=== PATIENT | female | born 1955 | race Caucasian/White ===

== ENCOUNTER 2019-05-20 11:23 | Inpatient (IN) | payer MEDICARE, OTHER ==
[~2019-05-20] VITALS: Ht 180.3 cm; Wt 74.8 kg
--- NOTE | 2019-05-20 11:30 | NUR ---
NURSING ADMISSION NOTE: PT WAS ADMITTED TODAY FROM [facility] AT 1130 VIA AMBULANCE. PT ARRIVED ON THE UNIT VIA GURNEY ACCOMPANIED BY 2 FUSE CUP EXPANDER. PT IS A&OX3-4, ANXIOUS, IRRITABLE, AGITATED, FLAT AFFECT, DEPRESSED MOOD, UNCOOPERATIVE, DENIES SI/HI/AVH AT THIS TIME BUT STATING "IM VERY DEPRESSED I JUST HAD MY CANCER COME BACK AGAIN, THAT'S WHY IM HERE, I DON'T WANT TO TALK ABOUT ANY MEDICAL PROBLEMS". PT IS ABLE TO CONTRACT FOR SAFETY WHILE IN THE HOSPITAL. PT WAS UNCOOPERATIVE WITH THE ADMISSION PROCESS AND REFUSED TO SIGN THE PAPERWORK. PT ALSO REFUSED PICTURES TO BE TAKEN BUT ALLOWED BODY CHECK TO BE DONE. PT HAD RECENT ABDOMINAL SURGERY ABOUT 8 DAYS AGO DUE TO HAVING OVARIAN CANCER AND HAS STERI STRIPS APPLIED TO THE WOUND BUT NO DRESSING OPEN TO AIR FROM THE PUBIC AREA UP TO THE UMBILICUS, BRUISE TO RIGHT INNER SIDE OF ELBOW, RIGHT WRIST AND RIGHT HAND/THUMB. WOULD CONSULT HAS BEEN ORDERED. ADMISSION ORDERS WERE GIVEN BY DR. GAGNON AND DR. ECHAVARRIA. PT IS CURRENTLY ON 5150 GD, PER HOLD, "PT IS ERRATIC AND UNPREDICTABLE. HAS THREATENED . HAS HISTORY OF MANIC EPISODES. A RESULT SHE IS UNABLE TO MEET HER BASIC NEEDS AND CANNOT SAFELY CARE FOR HER IN PRESENT CONDITION." VS:151/92, 74, 19, 97%RA, 98.0, 0/10 PAIN. WILL CONTINUE TO MONITOR Q15 MINS FOR SAFETY AND BEHAVIOR.
[2019-05-20] MEDS ORDERED: ATEN25TA PO (11:55)
[2019-05-20] MEDS ORDERED: ENOX40DI SQ (11:55)
[2019-05-20] MEDS ORDERED: TRAZ-214 PO (11:55)
[2019-05-20] MEDS ORDERED: DOCU-141 PO (11:55)
[2019-05-20] MEDS ORDERED: HYDR-3972 PO (11:55)
[2019-05-20] MEDS ORDERED: MAG HYDROX/AL HYDROX/SIMETH 30 ML UDC PO PRN (13:30)
[2019-05-20] MEDS ORDERED: MAGNESIUM HYDROXIDE 30 ML UDC PO PRN (13:30)
[2019-05-20] MEDS ORDERED: ACETAMINOPHEN 325 MG TABLET PO PRN (13:30)
--- NOTE | 2019-05-20 14:57 | NUR ---
Group Note: Pt did not attend group therapy session on 05/20/19 at 2pm discussing grief and loss. Pt stated that she was too new and needs time to adjust to the environment.
[2019-05-20 16:00] VITALS: BP 100/65
[2019-05-20] MEDS: DIVALPROEX SODIUM 125 MG CAP.SPRINK PO SCH (16:25)
[2019-05-20] MEDS: ARIPIPRAZOLE 5 MG TABLET PO SCH (16:25)
[2019-05-20] MEDS: HYDROCODONE/APAP 5/325MG 1 EACH TABLET PO PRN (19:34)
[2019-05-20 20:09] VITALS: BP 107/73
[2019-05-20] MEDS: TEMAZEPAM 7.5 MG CAPSULE PO PRN (21:57)
[2019-05-20] MEDS ORDERED: LORAZEPAM 0.5 MG TABLET ONE (23:14)
[2019-05-20] MEDS: LORAZEPAM 0.5 MG TABLET PO PRN (23:25)
[2019-05-21 06:41] LABS: ALBUMIN 3.3 g/dL (3.4-5.0); BILIRUBIN,TOTAL 0.3 mg/dL (0.2-1.0); CALCIUM, SERUM 8.7 mg/dL (8.5-10.1); POTASSIUM 4.5 mmol/L (3.5-5.1); TOTAL PROTEIN, SERUM 6.5 g/dL (6.4-8.2)
[2019-05-21 06:52] LABS: CHOLESTEROL 156 mg/dL (<200); HDL CHOLESTEROL 34 mg/dL (40-60); LDL 99 mg/dL (0-99); TRIGLYCERIDES 110 mg/dL (30-150)
[2019-05-21 08:00] VITALS: BP 100/64
[2019-05-21] MEDS: DOCUSATE SODIUM 100 MG CAPSULE PO SCH ×2 (08:47→16:16)
[2019-05-21] MEDS: ARIPIPRAZOLE 5 MG TABLET PO SCH (08:47)
[2019-05-21] MEDS: DIVALPROEX SODIUM 125 MG CAP.SPRINK PO SCH ×3 (08:47→16:16)
[2019-05-21] MEDS: ATENOLOL 25 MG TABLET PO SCH (08:50)
--- NOTE | 2019-05-21 11:31 | NUR ---
WOUND CARE CONSULT: PT PRESENTS AMBULATORY AND CONTINENT WITH CLOSED ABDOMINAL INCISION WITH SUTURES AND STERI STRIPS, NO DRAINAGE, NO TENDERNESS, NO REDNESS NOTED. DEFER TO MD. RECOMMEND FOLLOW UP WITH HER SURGEON. WILL SEE PRN. PT IS A NURSE.
[2019-05-21 16:09] VITALS: BP 139/73
--- NOTE | 2019-05-21 16:15 | NUR ---
SW called the pts , Jonathan ([phone]), and inquired about the pts follow up doctors appointment. He stated that there is an appointment for June 05 but the pt also scheduled one for the following day. He was unable to inform the SW about the necessity level of the appointment. SW stated that she would attempt to speak to the doctor herself.
[2019-05-21] MEDS: HYDROCODONE/APAP 5/325MG 1 EACH TABLET PO PRN (18:30)
--- NOTE | 2019-05-21 18:36 | NUR ---
GPS/RN-NOTES PATIENT REQUESTING NORCO FOR 6/10 ABDOMINAL PAIN. NORCO 5/325MG 1 TAB. P.O GIVEN PRN ORDER. WILL CONT. MONITORING FOR SAFETY.
[2019-05-21 20:33] VITALS: BP 110/71
[2019-05-21] MEDS: TEMAZEPAM 7.5 MG CAPSULE PO PRN (21:41)
[2019-05-21] MEDS: ENOXAPARIN SODIUM 40 MG/0.4 ML DISP.SYRIN SQ SCH (21:49)
[2019-05-22] MEDS: TEMAZEPAM 7.5 MG CAPSULE PO PRN ×2 (01:56→23:15)
[2019-05-22] MEDS: HYDROCODONE/APAP 5/325MG 1 EACH TABLET PO PRN ×2 (03:00→20:17)
[2019-05-22 08:00] VITALS: BP 115/78
[2019-05-22] MEDS: DIVALPROEX SODIUM 125 MG CAP.SPRINK PO SCH ×3 (08:37→16:44)
[2019-05-22] MEDS: DOCUSATE SODIUM 100 MG CAPSULE PO SCH ×2 (08:37→16:43)
[2019-05-22] MEDS: ARIPIPRAZOLE 5 MG TABLET PO SCH (08:38)
--- NOTE | 2019-05-22 09:16 | NUR ---
SW called the pts doctors office, Dr. Jonathan Jimenez ([phone]), and spoke to Ce who stated that the pt called the doctors office around 3pm on the first day of her hold. PATTY stated that was within 4 hours of her being in the hospital. PATTY asked Ce to speak to the doctor about the importance of this appointment and she returned and stated that Dr. Jimenez believes she should remain on her hold and make it to the appointment in May when it was originally scheduled.
--- NOTE | 2019-05-22 09:20 | NUR ---
PATTY called the pts , Jonathan ([phone]), and informed him that the pt will remain on her hold and that the appointment was rescheduled for June 03 at 12:40PM.
[2019-05-22] MEDS: ATENOLOL 25 MG TABLET PO SCH (10:02)
--- NOTE | 2019-05-22 12:53 | NUR ---
Initial Discharge Planning: Pt currently resides at her home with her located at [address] [place] [address]; ([phone]). Per pt, she would like to return to her home. SW will work with the pt and the MD regarding appropriate discharge planning. SW will form a safe and proper discharge planning.
[2019-05-22 16:00] VITALS: BP 147/84
[2019-05-22 20:00] VITALS: BP 117/71
[2019-05-22] MEDS: ENOXAPARIN SODIUM 40 MG/0.4 ML DISP.SYRIN SQ SCH (20:31)
--- NOTE | 2019-05-22 20:54 | NUR ---
PATIENT THINKS SHE HAS URINARY INFECTION DUE TO PRESSURE ON HER BLADDER, ASKING TO HAVE HER URINE CHECK. WILL COLLECT URINE IN THE MORNING PER HER REQUEST.
[2019-05-22] MEDS: LORAZEPAM 0.5 MG TABLET PO PRN (23:48)
[2019-05-23] MEDS ORDERED: ONDA4TAB5 PO (00:37)
--- NOTE | 2019-05-23 00:38 | NUR ---
GPS/RN-PATIENT COMPLAINED OF NAUSEA.CALLED , INFORMED OF NANETTE HE ORDERED ZOFRAN 4MG.PO Q6HRS.PRN.
[2019-05-23] MEDS: ONDANSETRON 4 MG TAB.RAPDIS SL PRN ×2 (03:03→17:20)
--- NOTE | 2019-05-23 03:10 | NUR ---
c/o nausea, no vomiting noted, zofran 4 mg sl administered.
[2019-05-23] MEDS: HYDROCODONE/APAP 5/325MG 1 EACH TABLET PO PRN ×2 (04:23→13:27)
[2019-05-23 08:00] VITALS: BP 118/74
[2019-05-23] MEDS: ARIPIPRAZOLE 5 MG TABLET PO SCH (09:02)
[2019-05-23] MEDS: DOCUSATE SODIUM 100 MG CAPSULE PO SCH ×2 (09:02→16:38)
[2019-05-23] MEDS: DIVALPROEX SODIUM 125 MG CAP.SPRINK PO SCH ×2 (09:02→16:38)
[2019-05-23] MEDS: ATENOLOL 25 MG TABLET PO SCH (09:02)
--- NOTE | 2019-05-23 10:37 | NUR ---
GROUP NOTE: Pt attended group on 05/22/19 at 1400 discussing the topic of discharge planning. S: "I'm upset about not being able to discharge today. I want to go to my doctors appointment that I scheduled today at 2:00pm so that I can get my pathology report and start my chemo. I don't want to kill myself I want to live I have so much to live for, come on why would I get chemo if I wanted to kill myself. This was all a misunderstanding. I don't need to be here I am fine!" O: Pt was crying and and appeared anxious. A: Pt minimized reason for psychiatric admission. Pt stated she acted the way she did because she was just desperate and had been suffering due to her cancer diagnosis. P: Pt will continue milieu treatment and continue medication stabilization.
--- NOTE | 2019-05-23 14:32 | NUR ---
Group Note: Pt attended group therapy session on 05/23/19 at 1:30pm discussing support systems but was not engaged and did not participate.
--- NOTE | 2019-05-23 15:20 | NUR ---
PATTY called the pts , Jonathan ([phone]), and informed him that the pt is being discharged tomorrow at 11am. He stated that he would come pick her up.
[2019-05-23 16:00] VITALS: BP 100/59
[2019-05-23 20:24] VITALS: BP 102/69
[2019-05-23] MEDS ORDERED: TRAZODONE 50 MG TABLET PO SCH (22:00)
[2019-05-23] MEDS: ENOXAPARIN SODIUM 40 MG/0.4 ML DISP.SYRIN SQ SCH (22:37)
[2019-05-23] MEDS: TEMAZEPAM 7.5 MG CAPSULE PO PRN (22:38)
[2019-05-24] MEDS: LORAZEPAM 0.5 MG TABLET PO PRN (03:48)
[2019-05-24 08:00] VITALS: BP 112/65
[2019-05-24 08:16] VITALS: BP 112/65
[2019-05-24] MEDS: ATENOLOL 25 MG TABLET PO SCH (08:16)
[2019-05-24] MEDS: ARIPIPRAZOLE 5 MG TABLET PO SCH (08:16)
[2019-05-24] MEDS: DOCUSATE SODIUM 100 MG CAPSULE PO SCH (08:16)
[2019-05-24] MEDS: DIVALPROEX SODIUM 125 MG CAP.SPRINK PO SCH (08:17)
--- NOTE | 2019-05-24 09:14 | NUR ---
GAVE AN ORDER TO D/C HOLD AND D/C HOME AND TO FOLLOW UP WITH PSYCH AND MEDICAL DOCTORS.
--- NOTE | 2019-05-24 10:52 | NUR ---
REBAR FABRICATOR NOTE: PATIENT IS A 63B YEAR OLD FEMALE DISCHARGED HOME TO [id number] [place] [address] [address] [facility] [id number] . PATIENT IS COMPLIANT WITH MEDICATION MANAGEMENT, COOPERATIVE WITH PLAN OF CARE. VSS. NO ACUTE DISTRESS NOTED. NO COMPLAINTS. WOUND PICTURES TAKEN AND DOCUMENTED IN CHART. PATIENT DENIES SI/ HI AT THE TIME OF DISCHARGE. PATIENT'S BEHAVIOR HAS IMPROVED. PSYCHIATRIC DISCHARGE PLANS MET. MEDICAL TREATMENT PLANS DEFERRED FOR CONTINUAL MONITORING. RETURNED PERSONAL BELONGINGS TO PATIENT. EXIT CARE REVIEWED WITH PATIENT AND AMISHA SHELDON (). MEDS RECONCILED WITH DR. GAGNON AND FREDDIE, MARITZA WITH PSYCHIATRIC DISCHARGE ORDERS. DISCHARGE PAPERWORK SIGNED. PATIENT AND LEFT UNIT AT 10:45.
--- NOTE | 2019-05-26 09:43 | NUR ---
Discharge Note: Pt was discharged back to her home located at [address] [facility] [address], [place] [address]; ([phone]). Pt was picked up by her , Jonathan Alberts ([phone]) at around 11:00am. Upon discharge, the pt appeared to be in a euthymic mood and presented with a calm and content effect. Pt denied both suicidal and homicidal ideation as well as auditory and visual hallucinations. Pt will be under the care of her psychiatrist, Dr. Rodriguez, located at [address] [facility] [address]; , and a record of notes fax was sent to: [phone]. Pt will also be under the care of her lsw, Dr. Jonathan Ashford, located at [address] [place] [address]; .
== END 2019-05-24 10:45 | disposition home or self-care (01) | DRG 885 ==
LOC: GPS 11:23
PROVIDERS: ADMIT Psychiatry & Neurology Psychiatry; ATTEND Nurse Practitioner Acute Care
DX: F39 Unspecified mood [affective] disorder (principal); Z91.14 Patient's other noncompliance with medication regimen; Z85.43 Personal history of malignant neoplasm of ovary; Z73.6 Limitation of activities due to disability; I10 Essential (primary) hypertension; F31.9 Bipolar disorder, unspecified; Z98.890 Other specified postprocedural states
CPT/HCPCS: 36415; 80053-TC; 80061-TC; 80164-TC; J1650; Q0162